=== PATIENT | male | born 2000 | race Caucasian/White ===

== ENCOUNTER 2022-08-07 21:36 | Emergency (ER) | payer BC ==
[~2022-08-07] VITALS: Ht 180.3 cm; Wt 61.2 kg
[2022-08-07 23:04] VITALS: BP_SYST 119
--- NOTE | 2022-08-07 23:11 | NUR ---
Pt form home with c/o of right wrist after falling off chair after he lost balance. Pt denies head trauma, LOC or KO. Pt VSS and will remain in waiting room for MSE.
--- NOTE | 2022-08-08 01:21 | NUR ---
Requested for MD to update patient. Pt waiting for MSE.
--- NOTE | 2022-08-08 03:36 | NUR ---
Patient left without being seen. CALLED X 3, NO ANSWER.
== END 2022-08-08 03:36 | disposition left against medical advice (07) ==
LOC: SED 21:36
DX: M25.531 Pain in right wrist (principal); Z53.21 Procedure and treatment not carried out due to patient leaving prior to being seen by health care provider